=== PATIENT | female | born 1990 | race Caucasian/White ===

== ENCOUNTER 2017-10-17 15:22 | Emergency (ER) | payer MEDICAID ==
[~2017-10-17] VITALS: Ht 160 cm; Wt 63.5 kg
--- NOTE | 2017-10-17 16:28 | NUR ---
27 years old female presents to er c/o abd pain nausea vomiting today.
[2017-10-17 17:13] LABS: BASOPHILS # (AUTO) 0.2 K/uL (0.0-8.0); BASOPHILS % (AUTO) 2.4 % (0.0-2.0); EOSINOPHILS # (AUTO) 0.2 K/uL (0.0-0.7); EOSINOPHILS % (AUTO) 2.6 % (0.0-7.0); HEMATOCRIT 44.3 % (37-47); HEMOGLOBIN 14.6 G/DL (12.0-16.0); LYMPHOCYTES # (AUTO) 2.3 K/UL (0.8-4.8); LYMPHOCYTES % (AUTO) 29.8 % (20.5-51.5); MEAN CORPUSCULAR HEMOGLOBIN 28.1 UUG (27.0-31.0); MEAN CORPUSCULAR HGB CONC 33 g/dL (32.0-37.0); MONOCYTES # (AUTO) 0.4 K/UL (0.1-1.30); MONOCYTES % (AUTO) 5.6 % (0.0-11.0); NEUTROPHILS # (AUTO) 4.7 K/UL (1.8-8.9); NEUTROPHILS % (AUTO) 59.6 % (38.5-71.5); PLATELET COUNT (AUTO) 263 K/UL (150-450); RED BLOOD CELL COUNT(AUTO) 5.21 MIL/UL (4.2-5.4); WHITE BLOOD COUNT (AUTO) 7.8 K/UL (4.0-11.2)
[2017-10-17 17:16] LABS: CREATININE 0.8 mg/dL (0.6-1.3); POTASSIUM 3.3 mmol/L (3.5-5.1)
[2017-10-17 17:21] LABS: BILIRUBIN,TOTAL 0.5 mg/dL (0.2-1.0); TOTAL PROTEIN, SERUM 8.5 g/dL (6.4-8.2)
[2017-10-17 17:23] LABS: *BILIRUBIN,URIN NEGATIVE (NEGATIVE); *BLOOD, URINE NEGATIVE (NEGATIVE); *CLARITY,URINE CLOUDY (CLEAR); *COLOR,URINE YELLOW (YELLOW); *KETONES,URINE TRACE (NEGATIVE); *PROTEIN,URINE NEGATIVE (NEGATIVE); *UROBILINOGEN,URINE 0.2 E.U./dl (NORMAL); LEUKOCYTE ESTERASE ,URINE NEGATIVE (NEGATIVE); NITRITE, URINE NEGATIVE (NEGATIVE); PH,URINE 8.5 (5.0-8.0); UGLUCOSE NEGATIVE (NEGATIVE)
[2017-10-17 17:29] LABS: *URINE HCG, QUAL NEGATIVE (NEGATIVE)
[2017-10-17 17:31] LABS: BACTERIA,URINE NONE SEEN /HPF (NONE SEEN); RBC,URINE 0-3 /HPF (0-3); SQUAMOUS EPITHELIAL CELL,UR FEW /HPF (NONE SEEN); URINE AMORPHOUS PHOSPHATES MODERATE /HPF; WBC,URINE 0-3 /HPF (0-3)
[2017-10-17] MEDS ORDERED: ONDANSETRON IV *ER 4 MG/2 ML VIAL IV ONE (18:17)
[2017-10-17] MEDS ORDERED: IV NS 1000 ML 1,000 ML IV ONE (18:30)
[2017-10-17] MEDS ORDERED: ONDANSETRON 4 MG/2 ML VIAL ONE (18:38)
[2017-10-17] MEDS ORDERED: HYDROMORPHONE 1 MG/1 ML DISP.SYRIN IV ONE (19:00)
[2017-10-17] MEDS ORDERED: HYDROMORPHONE 4 MG/1 ML DISP.SYRIN ONE (19:29)
--- NOTE | 2017-10-17 20:35 | NUR ---
IV removed. Catheter intact and site benign. Pressure and 4x4 gauze applied to site. No bleeding noted.
--- NOTE | 2017-10-17 20:43 | NUR ---
Patient discharged to home in stable conditon. Written and verbal after care instructions given. Patient verbalizes understanding of instructions.
[2017-10-17 20:45] VITALS: BP 115/68
== END 2017-10-17 20:46 | disposition home or self-care (01) ==
LOC: ER 15:23
DX: R10.32 Left lower quadrant pain (principal); R11.2 Nausea with vomiting, unspecified; Z90.49 Acquired absence of other specified parts of digestive tract
CPT/HCPCS: 36415; 84703; 85025; A4663; J1170; J2405; J7030

== ENCOUNTER 2019-01-25 11:46 | Emergency (ER) | payer MEDICAID ==
[~2019-01-25] VITALS: Ht 162.6 cm; Wt 65.8 kg
--- NOTE | 2019-01-25 12:03 | NUR ---
Patient discharged to home in stable conditon. Written and verbal after care instructions given. Patient verbalizes understanding of instructions.
== END 2019-01-25 12:08 | disposition home or self-care (01) ==
LOC: ER 11:46
DX: J40 Bronchitis, not specified as acute or chronic (principal); Z90.49 Acquired absence of other specified parts of digestive tract
CPT/HCPCS: A4663

== ENCOUNTER 2019-09-10 15:59 | Emergency (ER) | payer SELFPAY ==
[~2019-09-10] VITALS: Ht 160 cm; Wt 68.0 kg
[2019-09-10 16:40] LABS: *BILIRUBIN,URIN NEGATIVE (NEGATIVE); *CLARITY,URINE CLOUDY (CLEAR); *COLOR,URINE YELLOW (YELLOW); *KETONES,URINE NEGATIVE (NEGATIVE); *UROBILINOGEN,URINE 0.2 E.U./dl (NORMAL); LEUKOCYTE ESTERASE ,URINE 1+ (NEGATIVE); NITRITE, URINE NEGATIVE (NEGATIVE); PH,URINE 8.5 (5.0-8.0); UGLUCOSE NEGATIVE (NEGATIVE)
[2019-09-10 16:42] LABS: *BLOOD, URINE TRACE (NEGATIVE)
[2019-09-10 16:43] LABS: *URINE HCG, QUAL NEGATIVE (NEGATIVE)
[2019-09-10] MEDS ORDERED: ONDANSETRON 4 MG/2 ML VIAL ONE (16:44)
[2019-09-10] MEDS ORDERED: HYDROMORPHONE 2 MG/1 ML DISP.SYRIN ONE (16:44)
[2019-09-10 16:48] LABS: RBC,URINE 0-3 /HPF (0-3); WBC,URINE 20-50 /HPF (0-3)
[2019-09-10 16:49] LABS: BACTERIA,URINE FEW /HPF (NONE SEEN); SQUAMOUS EPITHELIAL CELL,UR FEW /HPF (NONE SEEN); URINE AMORPHOUS PHOSPHATES MODERATE /HPF
--- NOTE | 2019-09-10 16:49 | NUR ---
Female electronics engineering technologist accompanied female patient for ([employer]).
[2019-09-10] MEDS: HYDROMORPHONE 1 MG/1 ML DISP.SYRIN IM ONE (16:50)
[2019-09-10] MEDS: ONDANSETRON 4 MG/2 ML VIAL IM ONE (16:50)
[2019-09-10] MEDS ORDERED: LIDOCAINE HCL 1% 20 ML VIAL ONE (16:58)
[2019-09-10] MEDS ORDERED: CEFTRIAXONE 1 G VIAL ONE (16:58)
[2019-09-10] MEDS: CEFTRIAXONE 1 G VIAL IM ONE (17:07)
--- NOTE | 2019-09-10 17:12 | NUR ---
Patient discharged to home in stable conditon. Written and verbal after care instructions given. Patient verbalizes understanding of instructions. Patient ambulated with stable gait.
[2019-09-10 17:13] VITALS: BP 128/71
== END 2019-09-10 17:14 | disposition home or self-care (01) ==
LOC: ER 16:01
DX: N39.0 Urinary tract infection, site not specified (principal); Z90.49 Acquired absence of other specified parts of digestive tract
CPT/HCPCS: 76856; 81000; 81001; 84703; 87086; 96372 ×3; 99284; J0696; J1170; J2405; J3490; A4663

== ENCOUNTER 2020-05-08 12:18 | Emergency (ER) | payer BC ==
[~2020-05-08] VITALS: Ht 160 cm; Wt 74.8 kg
--- NOTE | 2020-05-08 12:26 | NUR ---
Patient ambulating with steady gait. A&O x4. c/o Left lower back pain. Patient states its a throbbing 10/10 on the pain scale. Denies any recent trauma or fall. Patient also states that sensation started last night and got progressively worse this am. Patient states she took a couple of tylenol with little to no help. Speech is clear and able to make needs known / follow commands. Breathing even and unlabored. no cough or SOB noted. Denies any CP / GARCIA / N / V / D. Safety precautions implemented. s/r up x2.
--- NOTE | 2020-05-08 12:30 | NUR ---
Dr. Mai at bedside for MSE
[2020-05-08] MEDS ORDERED: ONDANSETRON 4 MG/2 ML VIAL IV ONE (12:45)
[2020-05-08] MEDS ORDERED: HYDROMORPHONE 1 MG/1 ML DISP.SYRIN IV ONE (12:45)
[2020-05-08] MEDS ORDERED: KETOROLAC TROMETHAMINE 15 MG INJ IVP ONE (12:45)
[2020-05-08] MEDS ORDERED: IV NORMAL SALINE 1000 ML BAG IV ONE ×2 (12:45→13:15)
[2020-05-08] MEDS ORDERED: ONDANSETRON 4 MG/2 ML VIAL ONE (12:54)
[2020-05-08] MEDS ORDERED: HYDROMORPHONE 2 MG/1 ML DISP.SYRIN ONE (12:54)
[2020-05-08] MEDS ORDERED: KETOROLAC TROMETHAMINE 30 MG INJ ONE (12:54)
--- NOTE | 2020-05-08 13:26 | NUR ---
Patient taken to CT scan in stable condition
[2020-05-08 14:19] LABS: *BILIRUBIN,URIN NEGATIVE (NEGATIVE); *BLOOD, URINE 2+ (NEGATIVE); *CLARITY,URINE CLOUDY (CLEAR); *COLOR,URINE YELLOW (YELLOW); *KETONES,URINE NEGATIVE (NEGATIVE); *UROBILINOGEN,URINE 0.2 E.U./dl (NORMAL); LEUKOCYTE ESTERASE ,URINE 2+ (NEGATIVE); NITRITE, URINE NEGATIVE (NEGATIVE); UGLUCOSE NEGATIVE (NEGATIVE)
--- NOTE | 2020-05-08 14:34 | NUR ---
IV removed. Catheter intact and site benign. Pressure and 4x4 gauze applied to site. No bleeding noted. Patient discharged to home in stable condition. Written and verbal after care instructions given. Patient verbalizes understanding of instructions. Stressed follow up or return to ER for worsening s/s. Patient ambulating with steady gait. NAD noted. Patients mother inside of ER waiting area waiting for patient.
[2020-05-08 14:37] VITALS: BP 134/73
[2020-05-08 14:37] LABS: WBC,URINE 20-50 /HPF (0-3)
[2020-05-08 14:39] LABS: BACTERIA,URINE FEW /HPF (NONE SEEN)
[2020-05-08 14:52] LABS: SQUAMOUS EPITHELIAL CELL,UR FEW /HPF (NONE SEEN)
== END 2020-05-08 14:34 | disposition home or self-care (01) ==
LOC: ER 12:18
DX: N13.2 Hydronephrosis with renal and ureteral calculous obstruction (principal); Z87.442 Personal history of urinary calculi
CPT/HCPCS: 36415; 74176; 81001; 84702; 87077; 87086; 87186; 96361; 96374; 96375; 99284; J1170; J1885; J2405; A4663; J7030

== ENCOUNTER 2020-08-04 12:42 | Emergency (ER) | payer BC, OTHER ==
[~2020-08-04] VITALS: Ht 160 cm; Wt 74.8 kg
[2020-08-04 13:13] LABS: *BLOOD, URINE NEGATIVE (NEGATIVE); *CLARITY,URINE SLIGHTLY CLOUDY (CLEAR); *COLOR,URINE YELLOW (YELLOW); *KETONES,URINE TRACE (NEGATIVE); *URINE HCG, QUAL NEGATIVE (NEGATIVE); *UROBILINOGEN,URINE 0.2 E.U./dl (NORMAL); LEUKOCYTE ESTERASE ,URINE NEGATIVE (NEGATIVE); NITRITE, URINE NEGATIVE (NEGATIVE); UGLUCOSE NEGATIVE (NEGATIVE)
[2020-08-04 13:14] LABS: *BILIRUBIN,URIN 1+ (NEGATIVE)
[2020-08-04] MEDS ORDERED: KETOROLAC TROMETHAMINE 15 MG INJ IVP ONE (13:15)
[2020-08-04] MEDS ORDERED: IV NORMAL SALINE 1000 ML BAG IV ONE (13:15)
[2020-08-04] MEDS ORDERED: FAMOTIDINE. 20 MG/2 ML VIAL IV ONE ×2 (13:15→13:18)
[2020-08-04] MEDS ORDERED: ONDANSETRON 4 MG/2 ML VIAL IV ONE (13:15)
[2020-08-04] MEDS ORDERED: KETOROLAC TROMETHAMINE 15 MG INJ ONE (13:17)
[2020-08-04] MEDS ORDERED: ONDANSETRON 4 MG/2 ML VIAL ONE (13:17)
[2020-08-04 13:36] LABS: BASOPHILS # (AUTO) 0.2 K/uL (0.0-8.0); BASOPHILS % (AUTO) 2.8 % (0.0-2.0); EOSINOPHILS # (AUTO) 0.1 K/uL (0.0-0.7); EOSINOPHILS % (AUTO) 1.4 % (0.0-7.0); HEMATOCRIT 40.3 % (31.2-41.9); HEMOGLOBIN 13.6 g/dL (10.9-14.3); LYMPHOCYTES # (AUTO) 2.3 K/uL (20.0-40.0); LYMPHOCYTES % (AUTO) 27.5 % (20.5-51.5); MEAN CORPUSCULAR HEMOGLOBIN 28.2 uug (24.7-32.8); MEAN CORPUSCULAR HGB CONC 34 g/dL (32.3-35.6); MEAN CORPUSCULAR VOLUME 83.8 fL (75.5-95.3); MONOCYTES # (AUTO) 0.4 K/uL (2.0-10.0); MONOCYTES % (AUTO) 5.3 % (0.0-11.0); NEUTROPHILS # (AUTO) 5.3 K/uL (1.8-8.9); PLATELET COUNT (AUTO) 278 K/uL (179-408); WHITE BLOOD COUNT (AUTO) 8.4 K/uL (3.8-11.8)
[2020-08-04 13:42] LABS: CREATININE 0.6 mg/dL (0.6-1.3); POTASSIUM 2.9 mmol/L (3.5-5.1)
[2020-08-04] MEDS ORDERED: POTASSIUM CHLORIDE 20 MEQ TAB.PRT.SR PO ONE (14:00)
[2020-08-04] MEDS ORDERED: POTASSIUM CHLORIDE 20 MEQ TAB.PRT.SR ONE (14:13)
--- NOTE | 2020-08-04 14:41 | NUR ---
discharge instruction and prescription rendered. pt understands instructions - discharged in stable condition.
[2020-08-04 14:42] VITALS: BP 115/62
--- NOTE | 2020-08-04 14:43 | NUR ---
saline lock removed. tolerated well.
[2020-08-04 16:07] LABS: BACTERIA,URINE FEW /HPF (NONE SEEN); RBC,URINE 0-3 /HPF (0-3); SQUAMOUS EPITHELIAL CELL,UR FEW /HPF (NONE SEEN); WBC,URINE NONE SEEN /HPF (0-3)
[2020-08-04 16:08] LABS: URINE AMORPHOUS URATE MODERATE /HPF
== END 2020-08-04 14:44 | disposition home or self-care (01) ==
LOC: ER 12:42
DX: R10.9 Unspecified abdominal pain (principal); E87.6 Hypokalemia; Z87.442 Personal history of urinary calculi; Z87.440 Personal history of urinary (tract) infections
CPT/HCPCS: 36415; 76770; 80048; 81001; 84703; 85025; 87086; 96374; 96375; 99284; J1885; J2405; J3490; A4663; J7030

== ENCOUNTER 2020-11-11 05:16 | Emergency (ER) | payer BC, OTHER ==
[~2020-11-11] VITALS: Ht 160 cm; Wt 73.5 kg
--- NOTE | 2020-11-11 05:20 | NUR ---
Patient ambulated with steady gait. A/Ox4. Speech is clear, and is able to speak in complete sentences. No acute neuro deficits at this time. Patient came for c/o right sided abdominal pain and claims that she is 11 weeks and that this is her first . Denies any cp, palpitations or any chest discomfort. Denies any respiratory distress, no cough or sob. Patient reports nausea and vomiting, no diarrhea.
[2020-11-11] MEDS ORDERED: METOCLOPRAMIDE HCL 10 MG/2 ML VIAL IV ONE (05:45)
[2020-11-11] MEDS ORDERED: IV NORMAL SALINE 1000 ML BAG IV ONE (05:45)
[2020-11-11] MEDS ORDERED: MORPHINE SULFATE 4 MG/1 ML DISP.SYRIN IV ONE (05:45)
[2020-11-11] MEDS ORDERED: METOCLOPRAMIDE HCL 10 MG/2 ML VIAL ONE (05:48)
[2020-11-11] MEDS ORDERED: MORPHINE SULFATE 4 MG/1 ML DISP.SYRIN ONE (05:48)
[2020-11-11 06:00] LABS: *CLARITY,URINE SLIGHTLY CLOUDY (CLEAR); *COLOR,URINE YELLOW (YELLOW)
[2020-11-11 06:02] LABS: *BILIRUBIN,URIN NEGATIVE (NEGATIVE); *BLOOD, URINE 2+ (NEGATIVE); *KETONES,URINE NEGATIVE (NEGATIVE); UGLUCOSE NEGATIVE (NEGATIVE)
[2020-11-11 06:03] LABS: *UROBILINOGEN,URINE 0.2 E.U./dl (NORMAL); LEUKOCYTE ESTERASE ,URINE 1+ (NEGATIVE); NITRITE, URINE NEGATIVE (NEGATIVE)
[2020-11-11 06:11] LABS: *URINE HCG, QUAL POSITIVE (NEGATIVE)
[2020-11-11 06:12] LABS: BASOPHILS # (AUTO) 0.1 K/uL (0.0-8.0); BASOPHILS % (AUTO) 1.4 % (0.0-2.0); EOSINOPHILS # (AUTO) 0.1 K/uL (0.0-0.7); EOSINOPHILS % (AUTO) 1.1 % (0.0-7.0); HEMATOCRIT 37.6 % (31.2-41.9); HEMOGLOBIN 13.1 g/dL (10.9-14.3); LYMPHOCYTES # (AUTO) 2.1 K/uL (20.0-40.0); LYMPHOCYTES % (AUTO) 22.8 % (20.5-51.5); MEAN CORPUSCULAR HGB CONC 35 g/dL (32.3-35.6); MEAN CORPUSCULAR VOLUME 83.2 fL (75.5-95.3); MONOCYTES # (AUTO) 0.4 K/uL (2.0-10.0); MONOCYTES % (AUTO) 4.3 % (0.0-11.0); NEUTROPHILS # (AUTO) 6.4 K/uL (1.8-8.9); NEUTROPHILS % (AUTO) 70.4 % (38.5-71.5); PLATELET COUNT (AUTO) 227 K/uL (179-408); RED BLOOD CELL COUNT(AUTO) 4.52 MIL/uL (3.63-4.92); WHITE BLOOD COUNT (AUTO) 9.1 K/uL (3.8-11.8)
[2020-11-11] MEDS ORDERED: HYDROMORPHONE 1 MG/1 ML DISP.SYRIN IV ONE (06:15)
--- NOTE | 2020-11-11 06:15 | NUR ---
Kevin, [employer] tech here at bedside to do scan.
[2020-11-11 06:17] LABS: BACTERIA,URINE MODERATE /HPF (NONE SEEN); MUCUS,URINE FEW /LPF (0-FEW); SQUAMOUS EPITHELIAL CELL,UR MANY /HPF (NONE SEEN)
[2020-11-11] MEDS ORDERED: HYDROMORPHONE 1 MG/1 ML DISP.SYRIN ONE (06:17)
[2020-11-11] MEDS ORDERED: CEFAZOLIN 1 G in IV DEXTROSE 5% 50 ML IV ONE (06:30)
[2020-11-11 06:32] LABS: BILIRUBIN,DIRECT 0.1 mg/dL (0.0-0.2); BILIRUBIN,TOTAL 0.3 mg/dL (0.2-1.0); CREATININE 0.9 mg/dL (0.6-1.3); POTASSIUM 3.3 mmol/L (3.5-5.1); TOTAL PROTEIN, SERUM 8.3 g/dL (6.4-8.2)
[2020-11-11] MEDS ORDERED: CEFAZOLIN 1 G VIAL ONE (06:33)
--- NOTE | 2020-11-11 07:09 | NUR ---
Patient discharged to home in stable condition. Written and verbal after care instructions given. Patient verbalizes understanding of instructions. Stressed follow up or return to ER for worsening s/s. Patient is able to ambulate with stable gait. Patient stated she will call her father to come pick her up as she had driven here today.
[2020-11-11 07:11] VITALS: BP 121/63
== END 2020-11-11 07:12 | disposition home or self-care (01) ==
LOC: ER 05:23
DX: O99.891 Other specified diseases and conditions complicating pregnancy (principal); N13.30 Unspecified hydronephrosis; N23 Unspecified renal colic; O23.41 Unspecified infection of urinary tract in pregnancy, first trimester; Z3A.10 10 weeks gestation of pregnancy; Z3A.01 Less than 8 weeks gestation of pregnancy; Z87.442 Personal history of urinary calculi
CPT/HCPCS: 36415; 76705; 76856; 80048; 80076; 81001; 83690; 84703; 85025; 86850; 86900; 86901; 87086; 96361; 96365; 96375; 99285; J0690; J1170; J2270; J2765; J7060; 87077; A4663

== ENCOUNTER 2021-11-10 16:52 | Emergency (ER) | payer BC ==
[~2021-11-10] VITALS: Ht 160 cm; Wt 66.7 kg
--- NOTE | 2021-11-10 18:00 | NUR ---
PT IS IN ROOM #1B. DR AZEVEDO EVALUATED THE PT.
--- NOTE | 2021-11-10 19:30 | NUR ---
PT WAS D/C'd TO HOME BY DR AZEVEDO. D/C INSTRUCTIONS GIVEN TO THE PT BY DR AZEVEDO.
[2021-11-10 19:31] VITALS: BP 136/78
== END 2021-11-10 19:31 | disposition home or self-care (01) ==
LOC: ER 16:55
DX: U07.1 COVID-19 (principal)
CPT/HCPCS: 87400; A4663

== ENCOUNTER 2023-10-26 14:10 | Emergency (ER) | payer BC ==
[~2023-10-26] VITALS: Ht 160 cm; Wt 72.6 kg
[2023-10-26 15:14] LABS: BASOPHILS # (AUTO) 0.1 K/UL (0.0-0.2); BASOPHILS % (AUTO) 1.2 % (0.0-2.0); DIFFERENTIAL COMMENT 1; EOSINOPHILS # (AUTO) 0.1 K/uL (0.0-0.7); EOSINOPHILS % (AUTO) 1.1 % (0.0-7.0); HEMATOCRIT 39.2 % (31.2-41.9); HEMOGLOBIN 12.5 g/dL (10.9-14.3); LYMPHOCYTES % (AUTO) 21.1 % (20.5-51.5); MEAN CORPUSCULAR HEMOGLOBIN 27.5 uug (24.7-32.8); MEAN CORPUSCULAR HGB CONC 32 g/dL (32.3-35.6); MEAN CORPUSCULAR VOLUME 86.3 fL (75.5-95.3); MONOCYTES # (AUTO) 0.5 K/uL (0.1-1.30); MONOCYTES % (AUTO) 4.8 % (0.0-11.0); NEUTROPHILS # (AUTO) 6.9 K/uL (1.8-8.9); NEUTROPHILS % (AUTO) 71.8 % (38.5-71.5); PLATELET COUNT (AUTO) 258 K/uL (179-408); RED BLOOD CELL COUNT(AUTO) 4.54 MIL/uL (3.63-4.92); RED CELL DISTRIBUTION WIDTH 14.1 % (12.3-17.7); WHITE BLOOD COUNT (AUTO) 9.5 K/uL (3.8-11.8)
[2023-10-26 15:24] LABS: CALCIUM 9.4 mg/dL (8.5-10.1); CREATININE 0.7 mg/dL (0.6-1.3); POTASSIUM 3.6 mmol/L (3.5-5.1)
[2023-10-26 17:27] VITALS: BP 131/89; O2SAT 100
== END 2023-10-26 17:46 | disposition home or self-care (01) ==
LOC: ER 14:10
DX: O26.899 Other specified pregnancy related conditions, unspecified trimester (principal); R10.2 Pelvic and perineal pain; J40 Bronchitis, not specified as acute or chronic; Z90.49 Acquired absence of other specified parts of digestive tract
CPT/HCPCS: 36415; 76856; 85025; A4606; A4663

== ENCOUNTER 2023-10-28 13:40 | Emergency (ER) | payer BC ==
[~2023-10-28] VITALS: Ht 160 cm; Wt 72.6 kg
[2023-10-28 14:28] VITALS: O2SAT 100
[2023-10-28 15:06] LABS: BASOPHILS # (AUTO) 0.1 K/UL (0.0-0.2); BASOPHILS % (AUTO) 1.2 % (0.0-2.0); EOSINOPHILS # (AUTO) 0.1 K/uL (0.0-0.7); EOSINOPHILS % (AUTO) 1.4 % (0.0-7.0); HEMATOCRIT 38.4 % (31.2-41.9); HEMOGLOBIN 12.6 g/dL (10.9-14.3); LYMPHOCYTES # (AUTO) 2.2 K/uL (0.8-4.8); LYMPHOCYTES % (AUTO) 28.6 % (20.5-51.5); MEAN CORPUSCULAR HEMOGLOBIN 27.9 uug (24.7-32.8); MEAN CORPUSCULAR HGB CONC 33 g/dL (32.3-35.6); MEAN CORPUSCULAR VOLUME 85.2 fL (75.5-95.3); MONOCYTES # (AUTO) 0.4 K/uL (0.1-1.30); MONOCYTES % (AUTO) 4.7 % (0.0-11.0); NEUTROPHILS # (AUTO) 4.9 K/uL (1.8-8.9); NEUTROPHILS % (AUTO) 64.1 % (38.5-71.5); PLATELET COUNT (AUTO) 251 K/uL (179-408); RED CELL DISTRIBUTION WIDTH 13.8 % (12.3-17.7); WHITE BLOOD COUNT (AUTO) 7.7 K/uL (3.8-11.8)
[2023-10-28 15:18] LABS: POTASSIUM 3.3 mmol/L (3.5-5.1)
[2023-10-28 15:19] LABS: CALCIUM 9.1 mg/dL (8.5-10.1); CREATININE 0.6 mg/dL (0.6-1.3)
[2023-10-28 15:20] LABS: DIFFERENTIAL COMMENT 1
[2023-10-28] MEDS ORDERED: POTASSIUM BICARBONATE/CIT AC 25 MEQ TABLET.EFF PO ONE (15:45)
[2023-10-28] MEDS ORDERED: POTASSIUM BICARBONATE/CIT AC 25 MEQ TABLET.EFF ONE (15:53)
== END 2023-10-28 17:07 | disposition home or self-care (01) ==
LOC: ER 13:40
DX: O03.4 Incomplete spontaneous abortion without complication (principal); R10.2 Pelvic and perineal pain; Z90.49 Acquired absence of other specified parts of digestive tract; Z3A.00 Weeks of gestation of pregnancy not specified
CPT/HCPCS: 36415; 76856; 85025; A4606; A4663

== ENCOUNTER 2023-11-27 12:44 | Emergency (ER) | payer BC ==
[~2023-11-27] VITALS: Ht 160 cm; Wt 77.1 kg
[2023-11-27] MEDS ORDERED: HYDROMORPHONE 1 MG/1 ML DISP.SYRIN ONE (13:28)
[2023-11-27] MEDS ORDERED: ONDANSETRON 4 MG/2 ML VIAL ONE (13:28)
[2023-11-27] MEDS ORDERED: KETOROLAC TROMETHAMINE 30 MG INJ ONE (13:28)
[2023-11-27] MEDS ORDERED: KETOROLAC TROMETHAMINE 30 MG INJ IVP ONE (13:30)
[2023-11-27] MEDS ORDERED: IV NS 1000 ML 1,000 ML IV ONE (13:30)
[2023-11-27] MEDS ORDERED: ONDANSETRON 4 MG/2 ML VIAL IV ONE (13:30)
[2023-11-27] MEDS ORDERED: HYDROMORPHONE 1 MG/1 ML DISP.SYRIN IV ONE (13:30)
[2023-11-27 13:33] LABS: BASOPHILS # (AUTO) 0.1 K/UL (0.0-0.2); EOSINOPHILS # (AUTO) 0.2 K/uL (0.0-0.7); EOSINOPHILS % (AUTO) 2.2 % (0.0-7.0); HEMATOCRIT 33.2 % (31.2-41.9); LYMPHOCYTES # (AUTO) 2.1 K/uL (0.8-4.8); LYMPHOCYTES % (AUTO) 25.9 % (20.5-51.5); MEAN CORPUSCULAR HEMOGLOBIN 27.9 uug (24.7-32.8); MEAN CORPUSCULAR HGB CONC 33 g/dL (32.3-35.6); MEAN CORPUSCULAR VOLUME 84.2 fL (75.5-95.3); MONOCYTES # (AUTO) 0.4 K/uL (0.1-1.30); NEUTROPHILS # (AUTO) 5.3 K/uL (1.8-8.9); NEUTROPHILS % (AUTO) 65.9 % (38.5-71.5); PLATELET COUNT (AUTO) 222 K/uL (179-408); RED BLOOD CELL COUNT(AUTO) 3.94 MIL/uL (3.63-4.92); RED CELL DISTRIBUTION WIDTH 13.9 % (12.3-17.7); WHITE BLOOD COUNT (AUTO) 8.1 K/uL (3.8-11.8)
[2023-11-27 13:45] LABS: DIFFERENTIAL COMMENT 1
[2023-11-27] MEDS ORDERED: NAPR500T6 PO (14:04)
[2023-11-27] MEDS ORDERED: HYDR-3980 PO (14:04)
[2023-11-27] MEDS ORDERED: methergine PO (16:29)
[2023-11-27 16:43] VITALS: BP 118/70; O2SAT 99
== END 2023-11-27 17:13 | disposition home or self-care (01) ==
LOC: ER 12:46
DX: N93.9 Abnormal uterine and vaginal bleeding, unspecified (principal); R10.2 Pelvic and perineal pain; Z90.49 Acquired absence of other specified parts of digestive tract; Z79.899 Other long term (current) drug therapy
CPT/HCPCS: 99285; 96374; 76856; 96361; 96375; 85025; 84702; 36415; J1885; J2405; J1170; J7040; A4606; A4663

== ENCOUNTER 2025-03-05 22:22 | Emergency (ER) | payer BC ==
[~2025-03-05] VITALS: Ht 162.6 cm; Wt 73.9 kg
[~2025-03-05 22:22] MED LIST: HYDR-3980 PO; NAPR500T6 PO; methergine PO
[2025-03-05] MEDS ORDERED: NEOM10SO7 RIGHT EAR (23:49)
[2025-03-05] MEDS ORDERED: NEOMY/POLYMYX B/HC OPHT DROP 7.5 ML BOTTLE ONE (23:50)
[2025-03-05] MEDS: NEOMY/POLYMYX B/HC OTIC SOL 10 ML BOTTLE OT ONE (23:53)
[2025-03-05 23:56] VITALS: BP 128/89; TEMP 97.8; O2SAT 98
== END 2025-03-05 23:56 | disposition home or self-care (01) ==
LOC: ER 22:25
DX: R09.A9 Foreign body sensation, other site (principal); H92.01 Otalgia, right ear; Z90.49 Acquired absence of other specified parts of digestive tract; Z87.09 Personal history of other diseases of the respiratory system; Z60.2 Problems related to living alone
CPT/HCPCS: A4606; A4663

== ENCOUNTER 2025-08-30 11:17 | Emergency (ER) | payer BC ==
[~2025-08-30] VITALS: Ht 165.1 cm; Wt 72.6 kg
[~2025-08-30 11:17] MED LIST changes: +AMOX-430 PO; +CIPR7.5D RIGHT EAR; +NEOM10SO7 RIGHT EAR
[2025-08-30 11:39] LABS: *BILIRUBIN,URIN NEGATIVE (NEGATIVE); *BLOOD, URINE 3+ (NEGATIVE); *CLARITY,URINE CLEAR (CLEAR); *COLOR,URINE YELLOW (YELLOW); *KETONES,URINE NEGATIVE (NEGATIVE); *PROTEIN,URINE 2+ (NEGATIVE); *UROBILINOGEN,URINE 0.2 E.U./dl (NORMAL); LEUKOCYTE ESTERASE ,URINE NEGATIVE (NEGATIVE); NITRITE, URINE NEGATIVE (NEGATIVE); UGLUCOSE NEGATIVE (NEGATIVE)
[2025-08-30 11:42] LABS: *URINE HCG, QUAL NEGATIVE (NEGATIVE)
[2025-08-30] MEDS ORDERED: KETOROLAC TROMETHAMINE 30 MG INJ ONE (11:45)
[2025-08-30] MEDS: IV NS 1000 ML 1,000 ML IV STA (11:49)
[2025-08-30] MEDS: KETOROLAC TROMETHAMINE 30 MG INJ IVP ONE (11:50)
[2025-08-30] MEDS ORDERED: ONDANSETRON 4 MG/2 ML VIAL ONE (11:55)
[2025-08-30] MEDS: ONDANSETRON 4 MG/2 ML VIAL IV ONE (11:59)
[2025-08-30] MEDS ORDERED: MORPHINE SULFATE 4 MG/1 ML DISP.SYRIN ONE ×2 (12:15→13:41)
[2025-08-30 12:16] LABS: SQUAMOUS EPITHELIAL CELL,UR MODERATE /HPF (NONE SEEN)
[2025-08-30 12:17] LABS: URINE AMORPHOUS URATE MODERATE /HPF
[2025-08-30] MEDS: MORPHINE SULFATE 4 MG/1 ML DISP.SYRIN IV ONE ×2 (12:22→13:44)
[2025-08-30 14:43] VITALS: BP 117/76
[2025-08-30] MEDS ORDERED: TAMS-3 PO (15:22)
[2025-08-30] MEDS ORDERED: ONDA4TAB5 PO (15:22)
[2025-08-30] MEDS ORDERED: OXYC-128 PO (15:22)
[2025-08-30] MEDS ORDERED: TADA5TAB13 PO (15:22)
[2025-08-30 15:37] VITALS: BP 117/76; TEMP 98.2; O2SAT 100
== END 2025-08-30 15:38 | disposition home or self-care (01) ==
LOC: ER 11:17
DX: N13.2 Hydronephrosis with renal and ureteral calculous obstruction (principal); Z90.49 Acquired absence of other specified parts of digestive tract
CPT/HCPCS: 99285; 74176; 96374; 96375; 81001; 84703; 87086; 96376; J1885; J2405; J2270 ×2; J7040; A4606; A4663

== ENCOUNTER 2025-09-02 05:41 | Emergency (ER) | payer BC ==
[~2025-09-02] VITALS: Ht 160 cm; Wt 81.6 kg
[~2025-09-02 05:41] MED LIST changes: +ONDA4TAB5 PO; +OXYC-128 PO; +TADA5TAB13 PO; +TAMS-3 PO
[2025-09-02] MEDS ORDERED: ONDANSETRON 4 MG/2 ML VIAL ONE ×3 (06:04→19:08)
[2025-09-02] MEDS ORDERED: MORPHINE SULFATE 4 MG/1 ML DISP.SYRIN ONE (06:04)
[2025-09-02] MEDS ORDERED: MORPHINE SULFATE 2 MG/1 ML DISP.SYRIN ONE (06:05)
[2025-09-02 06:20] LABS: PLATELET COUNT (AUTO) 246 K/uL (179-408); RED BLOOD CELL COUNT(AUTO) 4.46 MIL/uL (3.63-4.92); RED CELL DISTRIBUTION WIDTH 14.0 % (12.3-17.7); WHITE BLOOD COUNT (AUTO) 6.5 K/uL (3.8-11.8)
[2025-09-02 06:26] LABS: CREATININE 0.6 mg/dL (0.6-1.3); SODIUM SERUM 144.0 mmol/L (136-145); UREA NITROGEN, BLOOD 10.0 mg/dL (7-18)
[2025-09-02] MEDS: IV NORMAL SALINE 1000 ML BAG IV ONE (06:30)
[2025-09-02] MEDS: ONDANSETRON 4 MG/2 ML VIAL IV ONE ×3 (06:33→19:15)
[2025-09-02] MEDS: MORPHINE SULFATE 4 MG/1 ML DISP.SYRIN IV ONE (06:33)
[2025-09-02] MEDS ORDERED: KETOROLAC TROMETHAMINE 30 MG INJ ONE (06:39)
[2025-09-02] MEDS: KETOROLAC TROMETHAMINE 30 MG INJ IVP ONE ×2 (06:43→16:17)
[2025-09-02] MEDS ORDERED: diphenhydrAMINE 50 MG/1 ML VIAL ONE (06:57)
[2025-09-02] MEDS ORDERED: HYDROMORPHONE 1 MG/1 ML DISP.SYRIN ONE ×3 (06:58→19:09)
[2025-09-02] MEDS: diphenhydrAMINE 50 MG/1 ML VIAL IV ONE (07:01)
[2025-09-02] MEDS: HYDROMORPHONE 1 MG/1 ML DISP.SYRIN IV ONE ×3 (07:02→19:15)
[2025-09-02 09:43] LABS: *BILIRUBIN,URIN NEGATIVE (NEGATIVE); *BLOOD, URINE 3+ (NEGATIVE); *CLARITY,URINE CLEAR (CLEAR); *COLOR,URINE YELLOW (YELLOW); *KETONES,URINE NEGATIVE (NEGATIVE); *PROTEIN,URINE NEGATIVE (NEGATIVE); *UROBILINOGEN,URINE 0.2 E.U./dl (NORMAL); LEUKOCYTE ESTERASE ,URINE NEGATIVE (NEGATIVE); NITRITE, URINE NEGATIVE (NEGATIVE); UGLUCOSE NEGATIVE (NEGATIVE)
[2025-09-02 09:46] LABS: SQUAMOUS EPITHELIAL CELL,UR FEW /HPF (NONE SEEN); URINE AMORPHOUS PHOSPHATES FEW /HPF
[2025-09-02 09:47] LABS: *URINE HCG, QUAL NEGATIVE (NEGATIVE)
[2025-09-02] MEDS ORDERED: DIAZEPAM 10 MG/2 ML DISP.SYRIN ONE (16:15)
[2025-09-02] MEDS: DIAZEPAM 10 MG/2 ML DISP.SYRIN IV ONE (16:15)
[2025-09-02] MEDS ORDERED: IBUP-1957 PO (18:47)
[2025-09-02] MEDS ORDERED: DIAZ5TAB PO (18:47)
[2025-09-02] MEDS ORDERED: OXYC-128 PO (18:58)
[2025-09-02] MEDS ORDERED: NALO4SPR BNOSTRILS (19:00)
[2025-09-02 19:16] VITALS: BP 131/81
[2025-09-02 19:37] VITALS: BP 131/81; O2SAT 98
== END 2025-09-02 19:37 | disposition home or self-care (01) ==
LOC: ER 05:45
DX: N20.1 Calculus of ureter (principal); R10.9 Unspecified abdominal pain; Z88.7 Allergy status to serum and vaccine; Z90.49 Acquired absence of other specified parts of digestive tract
CPT/HCPCS: 36415; 74018; 84166; 84703; 85025; A4606; A4663; J1171; J1200; J1885; J2270; J2405; J3360; J7040